=== PATIENT | female | born 1995 | race Caucasian/White ===

== ENCOUNTER 2020-09-06 10:07 | Emergency (ER) | payer OTHER, SELFPAY ==
[2020-09-06 10:12] VITALS: BP 128/79; PULSE 83; RESP 14; TEMP 37.1; O2SAT 99
--- NOTE | 2020-09-06 10:15 | ED.URI ---
HPI - URI/Sore Throat General Chief Complaint: Upper Respiratory Infection Stated Complaint: sore throat stuffy nose Time Seen by Provider: 09/06/20 10:15 Source: patient and RN notes reviewed History of Present Illness HPI Narrative: Patient is a 24-year-old female who presents to the urgent care with complaints of sore throat and stuffy nose. Patient states that it started yesterday and she has taken 2 doses of DayQuil/NyQuil. Patient states that she takes daily Zyrtec as well as Singulair for her history of asthma. States that it did clear up the congestion however, her throat is on fire . Patient states that she was out of town this week and for a bachelorette alliance party but denies of any known exposure of Covid or strep. Denies of any fevers, nausea, vomiting. No other acute complaints. No acute distress noted. Patient aware of the plan of care. Some parts of this dictation were generated by voice recognition software and may contain typographical and/or grammatical inaccuracies. Related Data Home Medications Medication Instructions Recorded Confirmed cetirizine [Zyrtec] 10 mg PO DAILY 02/19/19 02/19/19 montelukast [Singulair] 10 mg PO DAILY 02/19/19 02/19/19 L norgest/e.estradiol-e.estrad 1 tablet PO DAILY 09/06/20 09/06/20 albuterol sulfate 1 inh INHALATION QID PRN 09/06/20 09/06/20 Allergies Allergy/AdvReac Type Severity Reaction Status Date / Time latex Allergy Mild Rash Verified 09/06/20 10:25 Review of Systems Review of Systems: Narrative: CONSTITUTIONAL: Denies fever, chills, or sweats. EYES: Denies visual changes, redness, or discharge. ENT: Reports of nasal congestion and sore throat CARDIOVASCULAR: Denies chest pain, palpitations, or edema. RESPIRATORY: Denies cough or dyspnea. GASTROINTESTINAL: Denies abdominal pain, nausea, vomiting, or diarrhea. GENITOURINARY: Denies dysuria or hematuria. SKIN: Denies rash or itching. MUSCULOSKELETAL: Denies back pain, joint pain, or myalgia. NEUROLOGIC: Denies headache, numbness, or weakness. All other systems reviewed are negative, except as documented in HPI. [facility] Past Medical History Medical History (Updated 09/06/20 @ 10:42 by SARAY Cuellar) Anxiety Asthma Surgical History Surgical History (Updated 02/19/19 @ 14:08 by SARAY Horan) H/O inguinal hernia repair H/O sinus surgery History of tonsillectomy Comments At the time of my signature, I reviewed and agree with the nursing past medical, surgical, social, and family history. There is no relevant family history pertinent to the patient complaint. Exam Narrative: Exam Narrative: GENERAL: This is a well-nourished, well-developed patient, in no apparent distress. HEAD: normocephalic, atraumatic. EYES: PERRL. Sclera clear/white. Vision is grossly intact. EARS: External ears normal, auditory canals clear and without drainage, TMs normal without perforation. Hearing grossly intact. NOSE: External nose normal with no obvious nasal discharge, nares without redness, no rhinorrhea. THROAT: Mucous membranes moist, posterior pharynx clear. Mild postnasal drainage NECK: Neck supple CARDIOVASCULAR: Regular rate and rhythm without murmurs, gallops, or rubs. RESPIRATORY: Clear to auscultation. Breath sounds equal bilaterally. No wheezes, rales, or rhonchi. SKIN: warm, intact with no suspicious lesions or rash, good texture and turgor. NEURO: awake, alert, and oriented to person, place and time. There were no obvious focal neurologic abnormalities. EXTREMITIES: No clubbing, cyanosis, or edema. Course Vital Signs Vital signs: Vital Signs Temperature 98.8 F 09/06/20 10:12 Pulse Rate 83 09/06/20 10:12 Respiratory Rate 14 09/06/20 10:12 Blood Pressure 128/79 09/06/20 10:12 Pulse Oximetry 99 09/06/20 10:12 Temperature 98.8 F 09/06/20 10:12 Pulse Rate 83 09/06/20 10:12 Respiratory Rate 14 09/06/20 10:12 Blood Pressure 128/79 09/06/20 10:12 Pulse Oximetry 99
[2020-09-07 17:41] LABS: SARS-CoV-2 RNA PCR Negative
== END 2020-09-06 10:45 | disposition home or self-care (01) ==
PROVIDERS: Emergency Provider Nurse Practitioner Family; PCP Internal Medicine
DX: J02.9 Acute pharyngitis, unspecified (principal); Z20.822 Contact with and (suspected) exposure to COVID-19; J45.909 Unspecified asthma, uncomplicated
CPT/HCPCS: 87081; 87880; 99213; C9803; G0463; U0003; U0005

== ENCOUNTER 2022-03-25 10:40 | Emergency (ER) | payer OTHER, SELFPAY ==
[2022-03-25 10:50] VITALS: BP 116/65; PULSE 84; RESP 18; TEMP 36.6; O2SAT 100
--- NOTE | 2022-03-25 11:14 | ED.GENADULT ---
HPI - General Adult General Chief complaint: Upper Respiratory Infection Stated complaint: stuffy nose,throat hurts Source: patient Mode of arrival: ambulatory History of Present Illness HPI narrative: Patient presents for evaluation of sick symptoms for last 4 days. Symptoms include sinus congestion, mucopurulent discharge from her nares, sore throat, and fullness in the head and ears. No fever, chills, nausea, or vomiting. She had COVID in late 2020. She has received COVID vaccination in the past. She has received a flu shot this year. She tried sudafed without much improvement. She tried mucinex which seemed to help. She does not smoke. No recent specific sick contacts, although she does work with the general public. No additional complaints or concerns. Related Data Allergies Allergy/AdvReac Type Severity Reaction Status Date / Time latex Allergy Mild Rash Verified 03/25/22 10:58 Review of Systems Review of Systems: CONSTITUTIONAL: Denies fever, chills, or sweats. EYES: Denies visual changes, redness, or discharge. ENT: Reports sinus congestion, mucopurulent discharge from the nares, sore throat, fullness in the head a year's CARDIOVASCULAR: Denies chest pain, palpitations, or edema. RESPIRATORY: Denies cough or dyspnea. GASTROINTESTINAL: Denies abdominal pain, nausea, vomiting, or diarrhea. GENITOURINARY: Denies dysuria or hematuria. SKIN: Denies rash or itching. MUSCULOSKELETAL: Denies back pain, joint pain, or myalgia. NEUROLOGIC: Denies headache, numbness, dizziness, or weakness. PSYCHIATRIC: Denies anxiety or depression. [facility] Past Medical History Medical History Anxiety Asthma Surgical History Surgical History H/O inguinal hernia repair H/O sinus surgery History of tonsillectomy Family History Family History (Updated 03/25/22 @ 11:16 by SARAY Wade, NABILA) Mother Family history non-contributory Social History Social History Smoking status: Former smoker Living arrangements: alone Gender identity (if verbalized by the patient): Female Spiritual care concerns: No Exam Narrative: GENERAL: Well-appearing, well-nourished, and in no acute distress. HEAD: Normocephalic, atraumatic. EYES: PERRLA and EOMI. ENT: Nares clear, no rhinorrhea or epistaxis. Mucous membranes moist. Posterior pharyngeal erythema without exudate. Uvula is midline. Bilateral TMs pearly eason nonbulging NECK: Supple. No adenopathy or masses. No carotid bruits or JVD CHEST: Clear to auscultation. No respiratory distress. No wheezes rales or rhonchi HEART: Regular rate and rhythm. No murmur heard. Normal peripheral pulses. ABDOMEN: Soft, nontender, nondistended, normal active bowel sounds. EXTREMITIES: Normal range of motion. No edema. SKIN: Warm, dry, no rash. NEURO: No focal deficits. Alert and oriented x3. PSYCH: Normal mood and affect. Course Course Emergency Course: This is a 26-year-old female presented for evaluation of sick symptoms. COVID and influenza were negative. Unfortunately we do not have rapid strep testing. Will send for culture. Start Augmentin. Increase hydration. [id number] medications for symptom management. Follow up with primary. Go to the ER for difficulty breathing or swallowing. Pt in agreement with plan of care. Level of Care: Express Care Visit Vital Signs Vital signs: Vital Signs Temperature 36.6 C 03/25/22 10:50 Pulse Rate 84 03/25/22 10:50 Respiratory Rate 18 03/25/22 10:50 Blood Pressure 116/65 03/25/22 10:50 Pulse Oximetry 100 03/25/22 10:50 Oxygen Delivery Room Air 03/25/22 10:50 Temperature 36.6 C 03/25/22 10:50 Pulse Rate 84 03/25/22 10:50 Respiratory Rate 18 03/25/22 10:50 Blood Pressure 116/65 03/25/22 10:50 Pulse Oximetry 100 03/08
== END 2022-03-25 12:02 | disposition home or self-care (01) ==
PROVIDERS: Emergency Provider Nurse Practitioner; PCP Internal Medicine
DX: J02.9 Acute pharyngitis, unspecified (principal); Z20.822 Contact with and (suspected) exposure to COVID-19; Z87.891 Personal history of nicotine dependence; J45.909 Unspecified asthma, uncomplicated; Z86.16 Personal history of COVID-19
CPT/HCPCS: 87081; 87426; 87804; 99213; C9803; G0463